=== PATIENT | female | born 1930 | race Caucasian/White ===

== ENCOUNTER 2019-04-21 15:13 | Inpatient (IN) | payer MEDICARE, MEDICAID ==
[~2019-04-21] VITALS: Ht 149.9 cm; Wt 67.1 kg
[2019-04-21] MEDS ORDERED: Z GUARD REMEDY PASTE 57 GM TUBE TOP PRN (22:15)
[2019-04-21 22:18] VITALS: BP 140/78
[2019-04-21] MEDS ORDERED: SIMV40TA5 PO (22:42)
[2019-04-21] MEDS ORDERED: FENO54TA PO (22:42)
[2019-04-21] MEDS ORDERED: ASPI-605 PO (22:42)
[2019-04-21] MEDS ORDERED: ATEN25TA PO (22:42)
[2019-04-21] MEDS ORDERED: METF-440 PO (22:42)
[2019-04-21] MEDS ORDERED: CHOL10005 PO (22:42)
[2019-04-21] MEDS ORDERED: OLME20TA13 PO (22:42)
[2019-04-21] MEDS ORDERED: AMOX-427 PO (22:51)
--- NOTE | 2019-04-22 01:47 | NUR ---
Patient arrived in the unit at 2146 via gurney and by two paramedics. AAO x4. Able to make needs known. Condition fair. Faroese speaking. On room air. VS: BP:145/70, HR:76, RR:18, O2 SAT: 98% on room air, T: 98.1, no complain of pain. Admitting diagnosis: S/P Laparoscopic cholecystectomy, Sepsis. Dr. Germain was informed of admission. Patient's family was interviewed, Physical and initial assessment done. Medication reconciliation done and contacted [facility] on-call doctor. All admission work done. Skin assessed and pictures taken and put in the chart. MRSA Swap sent to the lab. Belonging list signed by patient's daughter. Assisted her to the bathroom as needed. Keep her clean and dry. Safety measures maintained. Fall precaution observed. Bed in low position, side rails up x2 for safety, brake and alarm on. Patient educated to use the call light. Call light and personal belongings within reach. Will continue to monitor and will endorse to the day shift nurse accordingly.
[2019-04-22 04:31] VITALS: BP 129/59
--- NOTE | 2019-04-22 06:35 | NUR ---
Contacted [facility] on-call doctor again for medication reconciliation. Talked to Dr. Bethel Frausto for medication reconciliation. will endorse to the day shift nurse.
[2019-04-22 07:52] VITALS: BP 117/67
--- NOTE | 2019-04-22 10:17 | NUR ---
Received patient in stable condition. Romanian speaking with periods of confusion. not in distress. no complaint of pain/discomfort. will continue monitor
[2019-04-22] MEDS ORDERED: Medication Not On Formulary EA (Olmesartan Medoxomil (Benicar) 20 MG) PO SCH (10:45)
[2019-04-22] MEDS ORDERED: FENOFIBRATE NANOCRYSTALLIZED 145 MG TABLET PO SCH (10:45)
[2019-04-22] MEDS ORDERED: CHOLECALCIFEROL 1,000 UNIT TABLET PO SCH (10:45)
[2019-04-22] MEDS: METFORMIN HCL 500 MG TABLET PO SCH (11:18)
[2019-04-22] MEDS: ASPIRIN EC 81 MG TABLET.DR PO SCH (11:18)
[2019-04-22] MEDS: ATENOLOL 25 MG TABLET PO SCH (11:36)
[2019-04-22] MEDS: HEPARIN SODIUM,PORCINE 5,000 UNITS/ML VIAL SQ SCH ×2 (11:43→20:24)
[2019-04-22] MEDS: VALSARTAN 160 MG TABLET PO SCH (11:50)
[2019-04-22] MEDS: CHOLECALCIFEROL 1,000 UNIT TABLET PO SCH (11:51)
[2019-04-22] MEDS: FENOFIBRATE NANOCRYSTALLIZED 48 MG TABLET PO SCH (12:01)
[2019-04-22] MEDS: AMOXICILLIN-CLAVUL 500-125MG TABLET PO SCH ×2 (12:01→20:22)
--- NOTE | 2019-04-22 12:16 | NUR ---
INTERDISCIPLINARY TEAM CONFERENCE
[2019-04-22] MEDS ORDERED: BISACODYL 5 MG TABLET.DR PO PRN (14:15)
[2019-04-22 16:34] VITALS: BP 90/50
--- NOTE | 2019-04-22 19:43 | NUR ---
Patient received in bed, AAO x2. Able to make needs known. No acute distress or SOB noted. On room air. Family st the bedside. Complained of abdominal pain at the surgical site, rated 5/10 in numeric scale. Physical assessment done. Educated patient to use call light when she wants to go to the bathroom. Safety measures observed. Fall precaution maintained. Bed in low position, side rails up x2 for safety, brake and alarm on. call light and personal belongings within reach. Continue to monitor.
[2019-04-22 19:44] VITALS: BP 109/47
[2019-04-22] MEDS: ACETAMINOPHEN 325 MG TABLET PO PRN (20:22)
[2019-04-22] MEDS: SIMVASTATIN 40 MG TABLET PO SCH (20:22)
--- NOTE | 2019-04-23 05:39 | NUR ---
End of the shift note Patient was stable throughout the shift and has a good sleep last night. No acute distress or SOB noted. On room air. Complained of pain on her surgical site, Tylenol administered, and was effective. VS checked. Pain assessed and reassessed after pain medication. All due medications given as ordered and well tolerated. Assisted her to the bathroom as needed. Keep her clean and dry. Hourly round done. Safety measures observed. Fall precaution maintained. Bed in low position, side rails up x2 for safety, brake and alarm on. call light and personal belongings within reach. Continue to monitor and will endorse to the day shift nurse accordingly.
[2019-04-23 06:48] VITALS: BP 116/47
[2019-04-23 07:30] LABS: BASOPHILS % (AUTO) 0.3 % (0.0-2.0); EOSINOPHILS # (AUTO) 0.2 K/uL (0.0-0.7); EOSINOPHILS % (AUTO) 2.1 % (0.0-7.0); HEMATOCRIT 36.3 % (31.2-41.9); HEMOGLOBIN 12.1 g/dL (10.9-14.3); LYMPHOCYTES # (AUTO) 2.9 K/uL (20.0-40.0); LYMPHOCYTES % (AUTO) 27.2 % (20.5-51.5); MEAN CORPUSCULAR HEMOGLOBIN 28.2 uug (24.7-32.8); MEAN CORPUSCULAR HGB CONC 34 g/dL (32.3-35.6); MEAN CORPUSCULAR VOLUME 84.4 fL (75.5-95.3); MONOCYTES # (AUTO) 0.7 K/uL (2.0-10.0); MONOCYTES % (AUTO) 6.7 % (0.0-11.0); NEUTROPHILS # (AUTO) 6.8 K/uL (1.8-8.9); NEUTROPHILS % (AUTO) 63.7 % (38.5-71.5); PLATELET COUNT (AUTO) 295 K/uL (179-408); RED BLOOD CELL COUNT(AUTO) 4.29 MIL/uL (3.63-4.92); WHITE BLOOD COUNT (AUTO) 10.6 K/uL (3.8-11.8)
[2019-04-23 07:36] LABS: CARBON DIOXIDE 25 mmol/L (21-32); CHLORIDE 104 mmol/L (98-107); CREATININE 1.1 mg/dL (0.6-1.3); GLUCOSE 103 mg/dL (74-106); PHOSPHOROUS 3.8 mg/dL (2.5-4.9); UREA NITROGEN, BLOOD 23 mg/dL (7-18)
[2019-04-23] MEDS: CHOLECALCIFEROL 1,000 UNIT TABLET PO SCH (10:14)
[2019-04-23] MEDS: VALSARTAN 160 MG TABLET PO SCH (10:14)
[2019-04-23] MEDS: ASPIRIN EC 81 MG TABLET.DR PO SCH (10:14)
[2019-04-23] MEDS: AMOXICILLIN-CLAVUL 500-125MG TABLET PO SCH ×2 (10:14→20:50)
[2019-04-23] MEDS: METFORMIN HCL 500 MG TABLET PO SCH (10:14)
[2019-04-23] MEDS: FENOFIBRATE NANOCRYSTALLIZED 48 MG TABLET PO SCH (10:15)
[2019-04-23] MEDS: ATENOLOL 25 MG TABLET PO SCH (10:17)
[2019-04-23] MEDS: HEPARIN SODIUM,PORCINE 5,000 UNITS/ML VIAL SQ SCH ×2 (10:18→20:49)
[2019-04-23 11:32] VITALS: BP 176/60
[2019-04-23 20:18] VITALS: BP 124/58
[2019-04-23] MEDS: SIMVASTATIN 40 MG TABLET PO SCH (20:50)
[2019-04-23] MEDS: ACETAMINOPHEN 325 MG TABLET PO PRN (20:51)
--- NOTE | 2019-04-23 21:33 | NUR ---
Received pt resting in bed. Algerian speaking, able to make needs known. Period of confusion noted. No acute distress noted. Pain on surgical site and headache. PRN pain med and other due meds given as ordered. VSS. Safety measures maintained. Call light and personal belongings within reach. Will continue to monitor.
[2019-04-24 06:21] VITALS: BP 120/58
[2019-04-24] MEDS: AMOXICILLIN-CLAVUL 500-125MG TABLET PO SCH ×2 (08:23→21:30)
[2019-04-24] MEDS: FENOFIBRATE NANOCRYSTALLIZED 48 MG TABLET PO SCH (08:23)
[2019-04-24] MEDS: VALSARTAN 160 MG TABLET PO SCH (08:23)
[2019-04-24] MEDS: CHOLECALCIFEROL 1,000 UNIT TABLET PO SCH (08:23)
[2019-04-24] MEDS: ATENOLOL 25 MG TABLET PO SCH (08:24)
[2019-04-24] MEDS: ASPIRIN EC 81 MG TABLET.DR PO SCH (08:24)
[2019-04-24] MEDS: METFORMIN HCL 500 MG TABLET PO SCH (08:24)
[2019-04-24] MEDS: HEPARIN SODIUM,PORCINE 5,000 UNITS/ML VIAL SQ SCH ×2 (08:27→21:31)
[2019-04-24 09:00] VITALS: BP 113/59
--- NOTE | 2019-04-24 09:04 | NUR ---
Received pt. in bed, comfortable in no distress. A/OX3 verbally responsive and able to make her needs known. All due medications given and tolerated well. No s/sx of bleeding, on heparin. All pt. needs attended and met promptly. Safety measures in place. Call light and all frequently used items within pt. reach.
--- NOTE | 2019-04-24 13:02 | NUR ---
INDIVIDUALIZE OVERALL PLAN OF CARE
[2019-04-24 15:36] VITALS: BP 160/64
[2019-04-24 16:31] VITALS: BP 121/56
--- NOTE | 2019-04-24 18:12 | NUR ---
End of shift note: No significant change during this shift. All needs attended and met promptly. Safety measures in placed. Bed in low position, brake on, side rails up x2 as an enabler. Call light and all frequently used items within pt. reach. Will endorse to next shift accordingly
--- NOTE | 2019-04-24 19:20 | NUR ---
Awake, alert, very pleasant, Denies any pain/discomforts at this time. safety measure and fall precaution maintained. Continue care as planned.
[2019-04-24 19:44] VITALS: BP 119/54
[2019-04-24] MEDS: SIMVASTATIN 40 MG TABLET PO SCH (21:30)
[2019-04-24] MEDS: ACETAMINOPHEN 325 MG TABLET PO PRN (21:37)
[2019-04-25 05:39] VITALS: BP 101/54
--- NOTE | 2019-04-25 06:32 | NUR ---
Shift End Report: Slept well. No complaint presented all night. All needs attended and met. No significant event reported . Continue current rehab plan of care.
[2019-04-25] MEDS: ASPIRIN EC 81 MG TABLET.DR PO SCH (08:32)
[2019-04-25] MEDS: FENOFIBRATE NANOCRYSTALLIZED 48 MG TABLET PO SCH (08:32)
[2019-04-25] MEDS: METFORMIN HCL 500 MG TABLET PO SCH (08:32)
[2019-04-25] MEDS: CHOLECALCIFEROL 1,000 UNIT TABLET PO SCH (08:32)
[2019-04-25] MEDS: VALSARTAN 160 MG TABLET PO SCH (08:37)
[2019-04-25] MEDS: ATENOLOL 25 MG TABLET PO SCH (08:37)
[2019-04-25] MEDS: HEPARIN SODIUM,PORCINE 5,000 UNITS/ML VIAL SQ SCH ×2 (08:37→20:24)
[2019-04-25 08:48] VITALS: BP 115/57
--- NOTE | 2019-04-25 09:38 | NUR ---
Received pt. in bed, comfortable in no distress. A/OX2-3 verbally responsive and able to make her needs known. All due medications given and tolerated well. No s/sx of bleeding, on heparin. Offered shower this AM, pt. refused. No new skin condition noted. All pt. needs attended and met promptly. Safety measures in place. Call light and all frequently used items within pt. reach.
[2019-04-25 16:12] VITALS: BP 104/49
[2019-04-25 19:40] VITALS: BP 133/58
--- NOTE | 2019-04-25 19:42 | NUR ---
Patient received in bed, AAO x3. Able to make needs known. No acute distress or SOB noted. On room air. No Complain of pain at this time. Physical assessment done. Educated patient to use call light when she wants to go to the bathroom. Safety measures observed. Fall precaution maintained. Bed in low position, side rails up x2 for safety, brake and alarm on. call light and personal belongings within reach. Continue to monitor.
[2019-04-25] MEDS: SIMVASTATIN 40 MG TABLET PO SCH (20:25)
--- NOTE | 2019-04-26 05:35 | NUR ---
End of the shift note Patient was stable throughout the shift and has a good sleep last night. No acute distress or SOB noted. On room air. No Complain of pain. VS checked. All due medications given as ordered and well tolerated. Assisted her to the bathroom as needed. Keep her clean and dry. Hourly round done. Safety measures observed. Fall precaution maintained. Bed in low position, side rails up x2 for safety, brake and alarm on. call light and personal belongings within reach. Continue to monitor and will endorse to the day shift nurse accordingly.
[2019-04-26 07:32] VITALS: BP 114/57
--- NOTE | 2019-04-26 08:00 | NUR ---
Received patient, awake, alert x1-2. May be impulsive and tried to get up, bed alarm on in low position. Reminded patient of limitations. Not in apparent pain. Not in any form of distress. With surgical laparoscopic incision dry with no S/S of infection.
[2019-04-26] MEDS: METFORMIN HCL 500 MG TABLET PO SCH (08:32)
[2019-04-26] MEDS: HEPARIN SODIUM,PORCINE 5,000 UNITS/ML VIAL SQ SCH ×2 (08:33→20:34)
[2019-04-26] MEDS: FENOFIBRATE NANOCRYSTALLIZED 48 MG TABLET PO SCH (08:33)
[2019-04-26] MEDS: ASPIRIN EC 81 MG TABLET.DR PO SCH (08:33)
[2019-04-26] MEDS: CHOLECALCIFEROL 1,000 UNIT TABLET PO SCH (08:33)
[2019-04-26] MEDS: VALSARTAN 160 MG TABLET PO SCH (08:34)
[2019-04-26] MEDS: ATENOLOL 25 MG TABLET PO SCH (08:34)
--- NOTE | 2019-04-26 08:45 | NUR ---
Up with occupational therapy, tolerating well. Able to ambulate with front wheel walker, morning care done, trupti-care done.
[2019-04-26 09:00] VITALS: BP 102/41
--- NOTE | 2019-04-26 12:22 | NUR ---
Offered prune juice and/ or Dulcolax PRN but patient refused and said she does not need it now. Discussed risks and benefits.
[2019-04-26 16:00] VITALS: BP 113/52
[2019-04-26 19:41] VITALS: BP 113/52
--- NOTE | 2019-04-26 19:48 | NUR ---
Patient received in bed, AAO x3. Able to make needs known. No acute distress or SOB noted. On room air. No Complain of pain at this time. Physical assessment done. Educated patient to have deep breath and the effect of deep breathing on blood oxygenation. Also, educate her to use call light when she needs help. Safety measures observed. Fall precaution maintained. Bed in low position, side rails up x2 for safety, brake and alarm on. call light and personal belongings within reach. Continue to monitor.
[2019-04-26] MEDS: SIMVASTATIN 40 MG TABLET PO SCH (20:33)
[2019-04-26] MEDS ORDERED: AMOXICILLIN-CLAVUL 500-125MG TABLET PO SCH (21:00)
[2019-04-27 06:57] VITALS: BP 121/52
[2019-04-27 09:00] VITALS: BP 102/52
[2019-04-27] MEDS: VALSARTAN 160 MG TABLET PO SCH (09:00)
[2019-04-27] MEDS: ATENOLOL 25 MG TABLET PO SCH (09:00)
--- NOTE | 2019-04-27 09:00 | NUR ---
Patient awake, alert, not in any form of acute distress. She denies any pain or discomfort at this time. assisted with her needs. Call light and frequently used items placed within reach.
[2019-04-27] MEDS: METFORMIN HCL 500 MG TABLET PO SCH (09:28)
[2019-04-27] MEDS: ASPIRIN EC 81 MG TABLET.DR PO SCH (09:28)
[2019-04-27] MEDS: CHOLECALCIFEROL 1,000 UNIT TABLET PO SCH (09:28)
[2019-04-27] MEDS: HEPARIN SODIUM,PORCINE 5,000 UNITS/ML VIAL SQ SCH ×2 (09:32→20:42)
[2019-04-27] MEDS: FENOFIBRATE NANOCRYSTALLIZED 48 MG TABLET PO SCH (10:20)
[2019-04-27 16:07] VITALS: BP 108/54
--- NOTE | 2019-04-27 19:35 | NUR ---
Patient received in bed, AAO x3, forgetful, but able to make needs known. No acute distress or SOB noted. On room air. No Complain of pain at this time. Physical assessment done. Educated patient to have deep breath and the effect of deep breathing on blood oxygenation. Also, educate her to use call light when she needs help. Safety measures observed. Fall precaution maintained. Bed in low position, side rails up x2 for safety, brake and alarm on. call light and personal belongings within reach. Continue to monitor.
[2019-04-27 19:42] VITALS: BP 109/51
[2019-04-27] MEDS: SIMVASTATIN 40 MG TABLET PO SCH (20:42)
[2019-04-28 05:19] VITALS: BP 138/62
[2019-04-28 07:30] VITALS: BP 110/55
--- NOTE | 2019-04-28 08:05 | NUR ---
Received patient, awake, alert x2-3, resting in bed. Not in any form of distress. No complaints of abdominal pain. No S/S of infection. Morning care done.
[2019-04-28] MEDS: HEPARIN SODIUM,PORCINE 5,000 UNITS/ML VIAL SQ SCH ×2 (08:20→20:39)
[2019-04-28] MEDS: METFORMIN HCL 500 MG TABLET PO SCH (08:21)
[2019-04-28] MEDS: ASPIRIN EC 81 MG TABLET.DR PO SCH (08:21)
[2019-04-28] MEDS: FENOFIBRATE NANOCRYSTALLIZED 48 MG TABLET PO SCH (08:21)
[2019-04-28] MEDS: CHOLECALCIFEROL 1,000 UNIT TABLET PO SCH (08:21)
[2019-04-28] MEDS: ATENOLOL 25 MG TABLET PO SCH (08:21)
[2019-04-28] MEDS: VALSARTAN 160 MG TABLET PO SCH (08:22)
--- NOTE | 2019-04-28 09:00 | NUR ---
Up with physial therapy, tolerating well. No pain noted. Able to ambulate with front wheel walker. Patient can be forgetful at times and needs re-orientation, but calm and cooperative.
[2019-04-28 16:00] VITALS: BP 118/61
[2019-04-28 20:00] VITALS: BP 112/55
[2019-04-28] MEDS: SIMVASTATIN 40 MG TABLET PO SCH (20:34)
--- NOTE | 2019-04-28 21:41 | NUR ---
Received pt in bed, appearing to be asleep but easily arousable to verbal stimuli and light touch. No acute distress noted. Verbally responsive and able to make needs known, denies pain or discomfort at this time. All due medications given as ordered, tolerated well. All safety measures and fall precautions maintained. Call light and all personal belongings within reach. Will continue to monitor.
[2019-04-29 05:00] VITALS: BP 124/65
[2019-04-29 08:06] LABS: HEMOGLOBIN 11.8 g/dL (10.9-14.3); NEUTROPHILS # (AUTO) 2.9 K/uL (1.8-8.9)
[2019-04-29 08:12] VITALS: BP 116/49
[2019-04-29 08:17] LABS: BASOPHILS % (AUTO) 0.7 % (0.0-2.0); EOSINOPHILS # (AUTO) 0.2 K/uL (0.0-0.7); HEMATOCRIT 34.9 % (31.2-41.9); LYMPHOCYTES % (AUTO) 36.1 % (20.5-51.5); MEAN CORPUSCULAR HEMOGLOBIN 28.3 uug (24.7-32.8); MEAN CORPUSCULAR HGB CONC 34 g/dL (32.3-35.6); MONOCYTES # (AUTO) 0.4 K/uL (2.0-10.0); MONOCYTES % (AUTO) 7.1 % (0.0-11.0); NEUTROPHILS % (AUTO) 53.1 % (38.5-71.5); PLATELET COUNT (AUTO) 334 K/uL (179-408); RED BLOOD CELL COUNT(AUTO) 4.16 MIL/uL (3.63-4.92)
[2019-04-29 08:18] LABS: WHITE BLOOD COUNT (AUTO) 5.5 K/uL (3.8-11.8)
[2019-04-29 08:31] LABS: ALANINE AMINOTRANSFERASE 59 U/L (14-59); ALKALINE PHOSPHATASE 153 U/L (50-136); ASPARTATE AMINOTRANSFERASE 33 U/L (15-37); BILIRUBIN,TOTAL 0.5 mg/dL (0.2-1.0); CARBON DIOXIDE 24 mmol/L (21-32); CHLORIDE 105 mmol/L (98-107); CHOLESTEROL 204 mg/dL (<200); GLUCOSE 105 mg/dL (74-106); HDL CHOLESTEROL 45 mg/dL (40-60); MAGNESIUM 1.9 mg/dL (1.8-2.4); PHOSPHOROUS 3.3 mg/dL (2.5-4.9); POTASSIUM 4.4 mmol/L (3.5-5.1); TOTAL PROTEIN, SERUM 7.8 g/dL (6.4-8.2); TRIGLYCERIDES 184 MG/DL (30-150); UREA NITROGEN, BLOOD 26 mg/dL (7-18)
[2019-04-29] MEDS: VALSARTAN 160 MG TABLET PO SCH (09:13)
[2019-04-29] MEDS: ASPIRIN EC 81 MG TABLET.DR PO SCH (09:13)
[2019-04-29] MEDS: ATENOLOL 25 MG TABLET PO SCH (09:13)
[2019-04-29] MEDS: METFORMIN HCL 500 MG TABLET PO SCH (09:13)
[2019-04-29] MEDS: CHOLECALCIFEROL 1,000 UNIT TABLET PO SCH (09:13)
[2019-04-29] MEDS: FENOFIBRATE NANOCRYSTALLIZED 48 MG TABLET PO SCH (09:13)
[2019-04-29] MEDS: HEPARIN SODIUM,PORCINE 5,000 UNITS/ML VIAL SQ SCH ×2 (09:19→21:16)
[2019-04-29] MEDS: ACETAMINOPHEN 325 MG TABLET PO PRN (10:06)
--- NOTE | 2019-04-29 14:51 | NUR ---
INTERDISCIPLINARY TEAM CONFERENCE
[2019-04-29 16:47] VITALS: BP 138/54
[2019-04-29 20:32] VITALS: BP 110/53
[2019-04-29] MEDS: SIMVASTATIN 20 MG TABLET PO SCH (21:09)
[2019-04-29] MEDS: EZETIMIBE 10 MG TABLET PO SCH (21:09)
[2019-04-30 07:09] VITALS: BP 108/80
[2019-04-30 08:14] VITALS: BP 131/59
[2019-04-30] MEDS: ASPIRIN EC 81 MG TABLET.DR PO SCH (08:44)
[2019-04-30] MEDS: VALSARTAN 160 MG TABLET PO SCH (08:44)
[2019-04-30] MEDS: METFORMIN HCL 500 MG TABLET PO SCH (08:44)
[2019-04-30] MEDS: ATENOLOL 25 MG TABLET PO SCH (08:46)
[2019-04-30] MEDS: FENOFIBRATE NANOCRYSTALLIZED 48 MG TABLET PO SCH (08:47)
[2019-04-30] MEDS: CHOLECALCIFEROL 1,000 UNIT TABLET PO SCH (08:47)
[2019-04-30] MEDS: HEPARIN SODIUM,PORCINE 5,000 UNITS/ML VIAL SQ SCH ×2 (08:48→20:50)
--- NOTE | 2019-04-30 09:00 | NUR ---
Patient awake, alert, sitting up on the side of the bed, not in any form of acute distress. She denies any pain or discomfort at this time. Call light and frequently used items placed within reach. Assisted with her needs.
[2019-04-30] MEDS: ACETAMINOPHEN 325 MG TABLET PO PRN (13:18)
[2019-04-30 18:45] VITALS: BP 116/47
[2019-04-30] MEDS: EZETIMIBE 10 MG TABLET PO SCH (20:44)
[2019-04-30] MEDS: SIMVASTATIN 20 MG TABLET PO SCH (20:44)
[2019-04-30 21:22] VITALS: BP 100/52
[2019-05-01 05:00] VITALS: BP 110/49
[2019-05-01 07:02] VITALS: BP 102/51
[2019-05-01] MEDS: CHOLECALCIFEROL 1,000 UNIT TABLET PO SCH (08:32)
[2019-05-01] MEDS: ASPIRIN EC 81 MG TABLET.DR PO SCH (08:32)
[2019-05-01] MEDS: METFORMIN HCL 500 MG TABLET PO SCH (08:32)
[2019-05-01] MEDS: VALSARTAN 160 MG TABLET PO SCH (08:33)
[2019-05-01] MEDS: ATENOLOL 25 MG TABLET PO SCH (08:33)
[2019-05-01] MEDS: FENOFIBRATE NANOCRYSTALLIZED 48 MG TABLET PO SCH (08:34)
[2019-05-01] MEDS: HEPARIN SODIUM,PORCINE 5,000 UNITS/ML VIAL SQ SCH ×2 (08:38→20:46)
[2019-05-01 16:48] VITALS: BP 101/53
[2019-05-01 20:14] VITALS: BP 121/60
[2019-05-01] MEDS: SIMVASTATIN 20 MG TABLET PO SCH (20:42)
[2019-05-01] MEDS: EZETIMIBE 10 MG TABLET PO SCH (20:42)
--- NOTE | 2019-05-01 21:12 | NUR ---
Received pt sleeping comfortably in bed. Aroused easily to verbal stimuli. AAO x3, Austrian speaking, able to make needs known. No acute distress noted. Denies pain or discomfort. All due meds given as ordered. Safety measures maintained. Call light and personal belongings within reach. Will continue to monitor.
[2019-05-02 04:52] VITALS: BP 113/51
[2019-05-02 07:43] VITALS: BP 113/52
[2019-05-02] MEDS: HEPARIN SODIUM,PORCINE 5,000 UNITS/ML VIAL SQ SCH (08:33)
[2019-05-02] MEDS: ASPIRIN EC 81 MG TABLET.DR PO SCH (08:34)
[2019-05-02] MEDS: CHOLECALCIFEROL 1,000 UNIT TABLET PO SCH (08:34)
[2019-05-02] MEDS: FENOFIBRATE NANOCRYSTALLIZED 48 MG TABLET PO SCH (08:34)
[2019-05-02] MEDS: METFORMIN HCL 500 MG TABLET PO SCH (08:36)
[2019-05-02] MEDS: VALSARTAN 160 MG TABLET PO SCH (08:40)
[2019-05-02] MEDS: ACETAMINOPHEN 325 MG TABLET PO PRN ×2 (08:40→14:57)
[2019-05-02] MEDS: ATENOLOL 25 MG TABLET PO SCH (08:40)
[2019-05-02 16:12] VITALS: BP 104/59
[2019-05-02] MEDS: SIMVASTATIN 20 MG TABLET PO SCH (20:36)
[2019-05-02] MEDS: EZETIMIBE 10 MG TABLET PO SCH (20:36)
--- NOTE | 2019-05-02 21:08 | NUR ---
Received pt resting in bed. Malian speaking, able to make needs known. No acute distress noted. Denies pain or discomfort. All due meds given as ordered. Pt to be d/c tomorrow. TMS done by Dr. Gong. Safety measures maintained. Call light and personal belongings within reach. Will continue to monitor.
[2019-05-02 21:27] VITALS: BP 100/50
[2019-05-03 06:14] VITALS: BP 120/54
[2019-05-03 07:30] VITALS: BP 113/62
[2019-05-03] MEDS: FENOFIBRATE NANOCRYSTALLIZED 48 MG TABLET PO SCH (08:29)
[2019-05-03] MEDS: ACETAMINOPHEN 325 MG TABLET PO PRN (08:29)
[2019-05-03] MEDS: CHOLECALCIFEROL 1,000 UNIT TABLET PO SCH (08:29)
[2019-05-03] MEDS: VALSARTAN 160 MG TABLET PO SCH (08:29)
[2019-05-03] MEDS: ASPIRIN EC 81 MG TABLET.DR PO SCH (08:30)
[2019-05-03] MEDS: ATENOLOL 25 MG TABLET PO SCH (08:30)
[2019-05-03] MEDS: METFORMIN HCL 500 MG TABLET PO SCH (08:30)
--- NOTE | 2019-05-03 11:11 | NUR ---
Received patient in stable condition, awake and orientedx3, [place] lucian speaking. not in distress. For discharge later at 5pm via private car at home with home health agency. FF UP with MD Beckham. right abdomen wound picture taken.
[2019-05-03 17:15] VITALS: BP 100/50
--- NOTE | 2019-05-03 17:23 | NUR ---
Patient discharge to home around 5pm with daughter via private transport in stable condition. Fax the prescription to the pharmacy. call back for the receipt of copy. prescription, test result and physical and history given. FF UP with primary physician instructed, verbalize understanding. not in distress. Family thankful for the care given. incision wound picture taken. MD Germain and MD Hugo aware.
== END 2019-05-03 17:00 | disposition home health service (06) | DRG 871 ==
PROVIDERS: ADMIT Physical Medicine & Rehabilitation Pain Medicine; ATTEND Physical Medicine & Rehabilitation Pain Medicine
DX: A41.9 Sepsis, unspecified organism (principal); I21.A1 Myocardial infarction type 2; D68.59 Other primary thrombophilia; N39.0 Urinary tract infection, site not specified; K80.62 Calculus of gallbladder and bile duct with acute cholecystitis without obstruction; E44.0 Moderate protein-calorie malnutrition; E11.9 Type 2 diabetes mellitus without complications; E78.5 Hyperlipidemia, unspecified; I10 Essential (primary) hypertension; Z90.49 Acquired absence of other specified parts of digestive tract; Z48.815 Encounter for surgical aftercare following surgery on the digestive system; B96.20 Unspecified Escherichia coli [E. coli] as the cause of diseases classified elsewhere; Z68.29 Body mass index [BMI] 29.0-29.9, adult
CPT/HCPCS: 36415; 83735; 84100; 84443; 85025; 92523; 92526; 92610; 97110; 97112; 97116; 97165; 97530; 97535; A4663; J1644